=== PATIENT | male | born 1945 | race Caucasian/White ===

== ENCOUNTER → 2017-08-02 | Outpatient (CLI) | payer MEDICARE ==
[~2017-08-02] MED LIST: AMLODIPINE BESYL5 MG PO; GLIMEPIRIDE4 MG PO; HYDROCO/APAP PO; IOPAMIDOL 370 MG/ML 200 ML INFUS..BTL INJ ONE; JANUMET XR 50-1 EAC1 PO; KEFLEX500 MG PO; ORPHENADRINE C100 MG PO; PANTOPRAZOLE SO40 MG PO; RAMIPRIL10 MG PO; SIMVASTATIN20 MG PO; SODIUM CHLORIDE 0.9% 50ML 50 ML ONE; TYLENOL WITH C1 EACH PO
[2017-08-02 15:33] LABS: BLOOD UREA NITROGEN 6 mg/dL (7-26); BUN/CREATININE RATIO 8 (6-25); CREATININE, SERUM 0.78 mg/dL (0.72-1.25); EST GLOMERULAR FILTRATION RATE > 60 ML/MIN (60-)
--- NOTE | 2017-08-02 16:23 | Diagnostic Imaging Report ---
PROCEDURE: CT scan of the chest WITH intravenous contrast, using standard protocol. TECHNIQUE: The chest was scanned utilizing a multidetector helical scanner from the lung apex through the level of the adrenal glands after the IV administration of 100 cc of Isovue 370. Coronal and sagittal multiplanar reformations were obtained. COMPARISON: None available for comparison. INDICATIONS: LUNG NODULE, ABDOMINAL PAIN FINDINGS: Lines/tubes: None. Lungs and Airways: Mild bilateral paraseptal bullous emphysematous changes in the upper lobes. Metastatic disease. Mild to moderate subpleural reticulation involving predominantly the lower lobes (for example series 4, image 64), and right middle lobe (series 4, image 63) and lingula (series 4, image 72). Calcified granulomas in the right lower lobe, measuring 6 mm (series 4, images 66 and 71). No other nodular densities are identified. No consolidation. Airways are clear, without endobronchial lesions.. Pleura: No effusion, or pneumothorax. Heart and mediastinum: Thyroid is unremarkable. Heart size is normal. No pericardial effusion. Atherosclerotic calcification of the coronary arteries and thoracic aorta, predominantly at the the arch. Aorta is non-aneurysmal. The main pulmonary artery is mildly enlarged, measuring 3.3 cm. Lymph nodes: No mediastinal, hilar, or axillary adenopathy. Abdomen: Please see CT abdomen and pelvis performed same date for further detail. Bones: No aggressive lytic lesion. Soft tissues are grossly unremarkable. IMPRESSION: 1. 2 calcified granulomas in the right lower lobe. No other nodular densities are identified. Prior films would be helpful for comparison, at which time an addendum to this report can be made. 2. Findings in bilateral lower lobes, right, middle lobe and lingula, consistent with fibrotic changes. 3. Mild enlargement of the main pulmonary artery, suggesting pulmonary hypertension. Bal Herrera M.D. Dictated by: Bal Herrera M.D. on 08/02/2017 at 16:24 Electronically approved by: Bal Herrera M.D. on 08/02/2017 at 16:24
--- NOTE | 2017-08-02 18:45 | Diagnostic Imaging Report ---
PROCEDURE: CT ABDOMEN AND PELVIS WITH CONTRAST TECHNIQUE: The abdomen and pelvis were scanned utilizing a multidetector helical scanner from the diaphragm to the lesser trochanter after the IV administration of 100 cc of Isovue 370 and the oral administration of water. Coronal and sagittal multiplanar reformations were obtained. COMPARISON: None. INDICATIONS: LUNG NODULE, ABDOMINAL PAIN FINDINGS: LOWER THORAX: Please see chest CT performed same date for further detail. HEPATOBILIARY: 1.6 x 1.5 x 1.1 cm fluid density simple cyst in hepatic segment II (series 2 image 51). Scattered punctate calcifications in both hepatic lobes, consistent with calcified granuloma. No other focal lesions. No intrahepatic biliary ductal dilation. Borderline to minimal dilation of the common bile duct, which measures 7 mm at the ryan hepatis. No radiopaque intraluminal filling defects. Gallbladder is unremarkable. SPLEEN: No splenomegaly. Innumerable calcified granulomata PANCREAS: No focal masses or ductal dilatation. Moderate pancreatic atrophy. ADRENALS: No adrenal nodules. Thickening of the left adrenal gland, without focal lesions. KIDNEYS/URETERS: No hydronephrosis, renal or ureteral stones, or solid mass lesions. 6.4 x 7.3 x 6.9 cm mostly exophytic fluid density simple cyst arising from the lateral interpolar region of the right kidney (series 2 image 71). 5.6 x 4.5 x 4.0 cm fluid density simple cyst in the interpolar region of the right kidney (series 2, image 69). 1.7 x 1.9 x 2.4 cm fluid density simple cyst in the medial interpolar right kidney (series 2, image 70). 2.0 x 1.8 x 1.8 cm fluid density simple cyst in the inferior pole of the right kidney (series 2, image 77). 1.2 x 1.3 x 1.6 cm partly exophytic fluid density simple cyst in the posterior interpolar region of the right kidney (series 2, image 70). 8 mm low density simple cyst in the superior pole of the left kidney (series 2, image 56). PELVIC ORGANS/BLADDER: Bladder is moderately distended, without focal lesions or wall thickening.. PERITONEUM / RETROPERITONEUM: No free air or fluid. LYMPH NODES: No lymphadenopathy. VESSELS: Atherosclerotic calcification of the abdominal aorta and iliac vessels. GI TRACT: No bowel dilation or evidence of obstruction. Appendix is well identified and normal in caliber. No pericolonic inflammatory changes. BONES AND SOFT TISSUES: No aggressively lesions. Marked multilevel degenerative disc changes, predominantly at L1-L2, L2-L3, L3-L4, and L4-L5, with associated leftward curvature. Marked facet hypertrophy. L3-L4, L4-L5, and L5-S1. IMPRESSION: 1. No acute abdominopelvic abnormalities. 2. Multiple right simple renal cysts, the largest of which is mostly exophytic and measures 7.3 cm in diameter. A single subcentimeter simple left renal cyst is noted. 3. Prior granulomatous disease, manifested by hepatic and splenic granulomata. Bal Herrera M.D. Dictated by: Bal Herrera M.D. on 08/02/2017 at 18:45 Electronically approved by: Bal Herrera M.D. on 08/02/2017 at 18:45
== END ==
LOC: CT 14:44
PROVIDERS: ATTEND Family Medicine
DX: R91.1 Solitary pulmonary nodule (principal)
CPT/HCPCS: 36415; 71260; 74177; 82565; 84520; Q9967

== ENCOUNTER → 2018-06-17 | Outpatient (CLI) | payer MEDICARE ==
[~2018-06-17] MED LIST changes: -IOPAMIDOL 370 MG/ML 200 ML INFUS..BTL INJ ONE; -SODIUM CHLORIDE 0.9% 50ML 50 ML ONE
--- NOTE | 2018-06-17 16:44 | Diagnostic Imaging Report ---
Exam: Lumbar spine, 4 views History: Low back pain Comparison: None. Findings: There are 5 nonrib-bearing lumbar-type vertebral bodies with a transitional lumbosacral vertebra which will be referred to as S1. No acute, displaced fracture or dislocation. No pars interarticularis defects are identified on the oblique radiographs. Moderate levoscoliosis centered at L2-L3. There is advanced disc space loss, endplate sclerosis, and large marginal osteophytes extending from L2-L3 to L5-S1. Probable postlaminectomy changes at L4 and L5. Spinal stimulator device is noted. Sacroiliac joints are intact. Atherosclerotic vascular disease. Impression: No acute osseous abnormality. 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 Signed by: Dr. Loki Lloyd M.D. on 06/17/2018 4:40 PM
== END ==
LOC: RAD 15:56
PROVIDERS: ATTEND Anesthesiology Pain Medicine
DX: M47.26 Other spondylosis with radiculopathy, lumbar region (principal)
CPT/HCPCS: 72110

== ENCOUNTER → 2018-12-06 | Outpatient (CLI) | payer MEDICARE ==
[~2018-12-06] MED LIST changes: +LORAZEPAM INJ 2 MG/ML VIAL ONE
[2018-12-06 08:21] LABS: BLOOD UREA NITROGEN 8 mg/dL (7-26); BUN/CREATININE RATIO 10 (6-25); CREATININE, SERUM 0.84 mg/dL (0.72-1.25); EST GLOMERULAR FILTRATION RATE > 60 ML/MIN (60-)
--- NOTE | 2018-12-06 11:49 | Diagnostic Imaging Report ---
EXAMINATION: MRI of the brain without contrast. HISTORY: Chronic left eye pain, disorders of the optic nerves COMPARISON: None. TECHNIQUE: Sagittal T2; axial DWI, T2, FLAIR, T1-IR, T2 gradient echo; coronal FLAIR. IMAGE QUALITY: Adequate. FINDINGS: Parenchyma: 1. Few scattered mildly confluent periventricular white matter T2 hyperintense foci, most likely nonspecific chronic microvascular ischemic changes 2. No mass, hemorrhage, acute or chronic infarcts. Skull: Unremarkable. Vessels: Expected flow voids present in the major arteries and dural sinuses. Extra-axial spaces: No abnormal signal intensity or mass effect. Brain volume: Within normal limits for age. Ventricles: No hydrocephalus or displacement. Foramen magnum: Unremarkable. Sella: Unremarkable. Paranasal / mastoid sinuses: No significant inflammatory disease. IMPRESSION: Minimal age-related white matter chronic microvascular ischemic changes. Otherwise no intracranial abnormalities to explain the patient's symptoms. Signed by: Dr. Bushra De M.D. on 12/06/2018 11:46 AM
== END ==
LOC: MRI 07:06
PROVIDERS: ATTEND Ophthalmology
DX: H47.092 Other disorders of optic nerve, not elsewhere classified, left eye (principal)
CPT/HCPCS: 36415; 70551; 82565; 84520; J2060

== ENCOUNTER → 2018-12-10 | Outpatient (CLI) | payer MEDICARE ==
--- NOTE | 2018-12-10 15:08 | Diagnostic Imaging Report ---
MRI ORBIT WO HISTORY: Left eye pain COMPARISON: MRI of the brain 12/06/2018 Technique: Multiplanar, multisequence MRI examination of the orbits was performed without intravenous contrast. Motion artifacts obscure some details. DISCUSSION: The orbital reed are grossly intact. The ocular globes and extraocular muscles are normal in morphology. The optic nerves, chiasm, and tracts are normal in morphology. The intraconal and extraconal spaces, including the lacrimal glands, are unremarkable. The cavernous sinuses are grossly normal in size and symmetric. Meckel's caves are clear. The cavernous carotid flow voids are preserved. Additional findings: Mild generalized cerebral volume loss is partially visualized. Scattered T2 hyperintense foci throughout the supratentorial white matter are likely chronic microvascular ischemic changes. There is a small retention cyst in the right maxillary sinus. IMPRESSION: Unremarkable MRI of the orbits. Signed by: Dr. Joni Ge M.D. on 12/10/2018 3:05 PM
== END ==
LOC: MRI 11:12
PROVIDERS: ATTEND Ophthalmology
DX: H47.092 Other disorders of optic nerve, not elsewhere classified, left eye (principal)
CPT/HCPCS: 70540; J2060

== ENCOUNTER → 2019-04-30 | Outpatient (CLI) | payer MEDICARE ==
--- NOTE | 2019-04-30 10:06 | Diagnostic Imaging Report ---
MRI of the right hip without contrast. History: Hip pain. Decreased range of motion. Pain not responding to conservative management. Fall. Technique: Multiplanar multisequence MRI of the hip without contrast Findings: No acute fracture, subluxation or avascular necrosis. Scattered degenerative change about the visualized lower lumbar spine and pelvis. Prominent heterogeneous prostate gland. The inferior aspect of the urinary bladder protrudes inferiorly. Mild degenerative arthrosis in the right hip with thinning of the articular cartilage at the superior lateral acetabulum and adjacent femoral head. No underlying bone marrow edema. Degeneration and fraying of the labrum. Small osteophyte at the superior lateral femoral head/neck junction area physiologic amount of fluid in the hip joint. The remainder of the visualized ligaments and tendons about the hip are intact. Mild soft tissue edema adjacent to the right hip greater trochanter could be due to mild trochanteric bursitis. Mild insertional hamstring tendinosis. The remainder the visualized muscles are normal in size, signal intensity and morphology. No ligamentous or tendon tear. The visualized neurovascular bundles are intact. Impression: Mild degenerative arthrosis in the right hip joint. Mild soft tissue edema adjacent to the right hip greater trochanter could be due to mild trochanteric bursitis. Mild insertional hamstring tendinosis. Signed by: Dr. Adair Perez M.D. on 04/30/2019 10:03 AM
== END ==
LOC: MRI 07:00
PROVIDERS: ATTEND Physical Medicine & Rehabilitation Pain Medicine
DX: M25.551 Pain in right hip (principal)
CPT/HCPCS: 73721; J2060

== ENCOUNTER → 2020-03-31 | Outpatient (CLI) | payer MEDICARE ==
[~2020-03-31] MED LIST changes: -LORAZEPAM INJ 2 MG/ML VIAL ONE
--- NOTE | 2020-03-31 16:03 | Diagnostic Imaging Report ---
Exam: Testicular ultrasound. Clinical History: Enlarged testicle Findings: Sonographic evaluation of the testicles. Both testes are normal in echogenicity and size without intratesticular mass. Normal symmetric bilateral blood flow without evidence of testicular torsion. Right testicle: The right testicle measures 2.9 x 1.9 x 2.5 cm and appears unremarkable. The right epididymis measures 1.5 x 1.0 x 1.0 cm and contains a 7 mm spermatocele. Trace right hydrocele. No varicocele. The left testicle measures 2.9 x 1.4 x 2.7 cm and appears unremarkable. The left epididymis measures 1.1 x 0.9 x 0.9 cm and appears unremarkable. Trace left hydrocele. No varicocele. Impression: No testicular torsion or intratesticular mass. Trace bilateral hydroceles. Small right spermatocele. Signed by: Abdirashid Cifuentes MD on 03/31/2020 3:59 PM
== END ==
LOC: US 13:23
PROVIDERS: ATTEND Family Medicine
DX: N50.89 Other specified disorders of the male genital organs (principal); N43.3 Hydrocele, unspecified; N43.40 Spermatocele of epididymis, unspecified
CPT/HCPCS: 76870; 93976

== ENCOUNTER → 2020-09-01 | Outpatient (CLI) | payer MEDICARE ==
[~2020-09-01] MED LIST changes: +DIATRIZOATE MEGL/DIATRIZOA SOD 30 ML BTL PO ONE; +IOPAMIDOL 370 MG/ML 200 ML INFUS..BTL INJ ONE; +SODIUM CHLORIDE 0.9% 50ML 50 ML ONE
[2020-09-01 15:22] LABS: BLOOD UREA NITROGEN 7 mg/dL (7-26); BUN/CREATININE RATIO 10 (6-25); CREATININE, SERUM 0.71 mg/dL (0.72-1.25); EST GLOMERULAR FILTRATION RATE > 60 ML/MIN (60-)
== END ==
LOC: CT 14:44
PROVIDERS: ATTEND Family Medicine
DX: R10.84 Generalized abdominal pain (principal); R63.4 Abnormal weight loss; R11.2 Nausea with vomiting, unspecified; Z87.891 Personal history of nicotine dependence
CPT/HCPCS: 36415; 71046; 74177; 82565; 84520; Q9967

== ENCOUNTER → 2020-09-23 | Outpatient (CLI) | payer MEDICARE ==
[~2020-09-23] MED LIST changes: -DIATRIZOATE MEGL/DIATRIZOA SOD 30 ML BTL PO ONE
[2020-09-23 13:23] LABS: BLOOD UREA NITROGEN 6 mg/dL (7-26); BUN/CREATININE RATIO 8 (6-25); CREATININE, SERUM 0.71 mg/dL (0.72-1.25); EST GLOMERULAR FILTRATION RATE > 60 ML/MIN (60-)
== END ==
LOC: CT 12:28
PROVIDERS: ATTEND Student in an Organized Health Care Education/Training Program
DX: R64 Cachexia (principal)
CPT/HCPCS: 36415; 71260; 82565; 84520; Q9967

== ENCOUNTER → 2020-09-28 | Outpatient (CLI) | payer MEDICARE ==
[~2020-09-28] MED LIST changes: +GADOBENATE DIMEGLUMINE 1 ML IV ONE; -IOPAMIDOL 370 MG/ML 200 ML INFUS..BTL INJ ONE; +LORAZEPAM INJ 2 MG/ML VIAL ONE
[2020-09-28 08:41] LABS: BLOOD UREA NITROGEN 5 mg/dL (7-26); BUN/CREATININE RATIO 7 (6-25); EST GLOMERULAR FILTRATION RATE > 60 ML/MIN (60-)
== END ==
LOC: MRI 07:48
PROVIDERS: ATTEND Surgery
DX: R10.9 Unspecified abdominal pain (principal); R63.4 Abnormal weight loss; K83.8 Other specified diseases of biliary tract
CPT/HCPCS: 36415; 74183; 82565; 84520; J2060

== ENCOUNTER → 2020-10-20 | Day surgery (SDC) | payer MEDICARE ==
[2020-10-15 09:21] LABS: BASOPHILS % 0.7 % (0.0-1.0); EOSINOPHILS # (AUTO) 0.2 (0.0-0.4); EOSINOPHILS % 2.6 % (0.0-6.0); HEMATOCRIT 34.1 % (38.2-49.6); HEMOGLOBIN 10.6 g/dL (14.0-18.0); LYMPHOCYTES # (AUTO) 1.6 (1.0-3.2); LYMPHOCYTES % 25.8 % (18.0-39.1); MEAN CORPUSCULAR HEMOGLOBIN 25.3 pg (28-32); MEAN CORPUSCULAR HGB CONC 31.1 g/dL (31-35); MEAN CORPUSCULAR VOLUME 81.4 fL (81-99); MONOCYTES # (AUTO) 0.6 (0.2-0.8); MONOCYTES % 9.9 % (4.4-11.3); NEUTROPHILS # (AUTO) 3.7 (2.1-6.9); NEUTROPHILS % 60.7 % (38.7-80.0); PLATELET COUNT 344 x10e3/uL (140-360); RED BLOOD COUNT 4.19 x10e6/uL (4.3-5.7); RED CELL DISTRIBUTION WIDTH 18.2 % (11.7-14.4)
[~2020-10-20] MED LIST changes: +ALFUZOSIN HCL10 MG PO; +BACLOFEN20 MG PO; +CLARITIN10 MG PO; -GADOBENATE DIMEGLUMINE 1 ML IV ONE; +HYDROCODON-ACE1 EAC9 PO; -LORAZEPAM INJ 2 MG/ML VIAL ONE; +LOSARTAN POTAS100 MG PO; +OMEPRAZOLE40 MG PO; +PANTOPRAZOLE 40 MG 10ML VIAL ONE; +PROPOFOL IV EMULSION 10 MG/ML 20 ML VIAL ONE; -SODIUM CHLORIDE 0.9% 50ML 50 ML ONE; +TOUJEO SOL300 UNIT/1 SQ
[2020-10-20 11:45] VITALS: BP 138/69
[2020-10-20 12:28] LABS: % IRON SATURATION 19 % (15-50); IRON 49 ug/dL (65-175); TOTAL IRON BINDING CAPACITY 253 ug/dL (261-478); TRANSFERRIN 181 mg/dL (174-364)
== END | disposition home or self-care (01) ==
LOC: OR 07:15
PROVIDERS: ATTEND Internal Medicine Gastroenterology
DX: K22.2 Esophageal obstruction (principal); D12.2 Benign neoplasm of ascending colon; D12.4 Benign neoplasm of descending colon; D12.5 Benign neoplasm of sigmoid colon; D12.8 Benign neoplasm of rectum; K29.70 Gastritis, unspecified, without bleeding; K20.90 Esophagitis, unspecified without bleeding; K44.9 Diaphragmatic hernia without obstruction or gangrene; K59.00 Constipation, unspecified; K64.8 Other hemorrhoids; D64.89 Other specified anemias; R63.4 Abnormal weight loss; I10 Essential (primary) hypertension; E11.9 Type 2 diabetes mellitus without complications; E78.5 Hyperlipidemia, unspecified; F41.9 Anxiety disorder, unspecified; Z88.6 Allergy status to analgesic agent; Z01.810 Encounter for preprocedural cardiovascular examination; Z01.812 Encounter for preprocedural laboratory examination; Z20.822 Contact with and (suspected) exposure to COVID-19; Z87.891 Personal history of nicotine dependence; Z87.19 Personal history of other diseases of the digestive system
CPT/HCPCS: 36415 ×2; 43239; 43450; 45380; 45385; 82607; 82746; 82948; 83540; 84466; 85025; 85045; 93005; C9113; J2704; U0002; 45378; 45384

== ENCOUNTER → 2020-11-24 | Outpatient (CLI) | payer MEDICARE ==
[~2020-11-24] MED LIST changes: -PANTOPRAZOLE 40 MG 10ML VIAL ONE; -PROPOFOL IV EMULSION 10 MG/ML 20 ML VIAL ONE
== END ==
LOC: NM 07:52
PROVIDERS: ATTEND Internal Medicine Gastroenterology
DX: R10.84 Generalized abdominal pain (principal); R63.4 Abnormal weight loss; K82.9 Disease of gallbladder, unspecified
CPT/HCPCS: 78226; A9537

== ENCOUNTER → 2020-12-13 | Day surgery (SDC) | payer MEDICARE ==
[2020-12-09 13:02] LABS: BASOPHILS # (AUTO) 0.1 (0.0-0.1); BASOPHILS % 1.1 % (0.0-1.0); EOSINOPHILS # (AUTO) 0.2 (0.0-0.4); EOSINOPHILS % 4.3 % (0.0-6.0); HEMATOCRIT 35.7 % (38.2-49.6); HEMOGLOBIN 11.3 g/dL (14.0-18.0); LYMPHOCYTES # (AUTO) 1.5 (1.0-3.2); LYMPHOCYTES % 26.2 % (18.0-39.1); MEAN CORPUSCULAR HEMOGLOBIN 26.8 pg (28-32); MEAN CORPUSCULAR HGB CONC 31.7 g/dL (31-35); MEAN CORPUSCULAR VOLUME 84.8 fL (81-99); MONOCYTES # (AUTO) 0.5 (0.2-0.8); MONOCYTES % 8.9 % (4.4-11.3); NEUTROPHILS # (AUTO) 3.3 (2.1-6.9); NEUTROPHILS % 59.1 % (38.7-80.0); PLATELET COUNT 294 x10e3/uL (140-360); RED BLOOD COUNT 4.21 x10e6/uL (4.3-5.7); RED CELL DISTRIBUTION WIDTH 16.1 % (11.7-14.4)
[2020-12-09 13:24] LABS: ALBUMIN 3.9 g/dL (3.5-5.0); ALBUMIN/GLOBULIN RATIO 1.3 (0.8-2.0); ANION GAP 11.6 mmol/L (8-16); CREATININE, SERUM 0.79 mg/dL (0.72-1.25); POTASSIUM 4.6 mmol/L (3.5-5.1)
[~2020-12-13] MED LIST changes: +BUPIVACAINE HCL 0.5% INJ 30 ML VIAL INJ ONE; +ESMOLOL HCL 100MG/10ML 10 MG/ML VIAL ONE; +FENTANYL CITRATE/PF 100MCG/2 ML INJ ONE; +GLYCOPYRROLATE INJ 0.2 MG/ML VIAL ONE; +HYDROCODONE/APAP 7.5MG-325MG 1 EA TAB ONE; +HYDROMORPHONE 1MG/1ML INJ ONE; +IOPAMIDOL 300MG/ML 50ML INFUS..BTL IV ONE; +LIDOCAINE HCL 2% LOCAL INJ 5 ML SDV VIAL INJ ONE; +METOPROLOL TARTRATE INJ 1 MG/ML VIAL ONE; +MORPHINE SULFATE INJ 4 MG/ML INJ 1ML ONE; +NEOSTIGMINE 1 MG/ML 10ML VIAL ONE; +POVIDONE IODINE 0.05% 0.05 % ML PO ONE; +PROPOFOL IV EMULSION 10 MG/ML 20 ML VIAL ONE; +SEVOFLURANE INHAL SOLN 250 ML PEN BTL ONE
[2020-12-13 12:48] VITALS: BP 123/62
== END | disposition home or self-care (01) ==
LOC: OR 06:38
PROVIDERS: ATTEND Surgery
DX: K81.1 Chronic cholecystitis (principal); R19.00 Intra-abdominal and pelvic swelling, mass and lump, unspecified site; B49 Unspecified mycosis; M54.9 Dorsalgia, unspecified; I10 Essential (primary) hypertension; E78.5 Hyperlipidemia, unspecified; E11.9 Type 2 diabetes mellitus without complications; Z01.810 Encounter for preprocedural cardiovascular examination; Z01.812 Encounter for preprocedural laboratory examination; Z01.818 Encounter for other preprocedural examination; Z79.4 Long term (current) use of insulin; Z87.891 Personal history of nicotine dependence
CPT/HCPCS: 36415 ×2; 47564; 71046; 74300; 80053; 82948; 85025; 88304; 88312; 93005; C1766; J1170; J2001; J2270; J2704; J2710; J3010; Q9967

== ENCOUNTER → 2021-03-11 | Outpatient (CLI) | payer MEDICARE ==
[~2021-03-11] MED LIST changes: -BUPIVACAINE HCL 0.5% INJ 30 ML VIAL INJ ONE; -ESMOLOL HCL 100MG/10ML 10 MG/ML VIAL ONE; -FENTANYL CITRATE/PF 100MCG/2 ML INJ ONE; -GLYCOPYRROLATE INJ 0.2 MG/ML VIAL ONE; -HYDROCODONE/APAP 7.5MG-325MG 1 EA TAB ONE; -HYDROMORPHONE 1MG/1ML INJ ONE; -IOPAMIDOL 300MG/ML 50ML INFUS..BTL IV ONE; -LIDOCAINE HCL 2% LOCAL INJ 5 ML SDV VIAL INJ ONE; -METOPROLOL TARTRATE INJ 1 MG/ML VIAL ONE; -MORPHINE SULFATE INJ 4 MG/ML INJ 1ML ONE; -NEOSTIGMINE 1 MG/ML 10ML VIAL ONE; -POVIDONE IODINE 0.05% 0.05 % ML PO ONE; -PROPOFOL IV EMULSION 10 MG/ML 20 ML VIAL ONE; -SEVOFLURANE INHAL SOLN 250 ML PEN BTL ONE
== END ==
LOC: DX 09:26
PROVIDERS: ATTEND Internal Medicine Gastroenterology
DX: R13.14 Dysphagia, pharyngoesophageal phase (principal); K29.70 Gastritis, unspecified, without bleeding; Z20.822 Contact with and (suspected) exposure to COVID-19
CPT/HCPCS: 74230; 92526; 92611; U0002

== ENCOUNTER 2021-03-24 05:28 | Observation (INO) | payer MEDICARE ==
[2021-03-21 11:00] LABS: BASOPHILS % 0.4 % (0.0-1.0); EOSINOPHILS # (AUTO) 0.2 (0.0-0.4); EOSINOPHILS % 1.5 % (0.0-6.0); HEMATOCRIT 34.2 % (38.2-49.6); HEMOGLOBIN 10.8 g/dL (14.0-18.0); LYMPHOCYTES # (AUTO) 2.2 (1.0-3.2); LYMPHOCYTES % 20.4 % (18.0-39.1); MEAN CORPUSCULAR HEMOGLOBIN 28.2 pg (28-32); MEAN CORPUSCULAR HGB CONC 31.6 g/dL (31-35); MEAN CORPUSCULAR VOLUME 89.3 fL (81-99); MONOCYTES % 8.7 % (4.4-11.3); NEUTROPHILS # (AUTO) 7.5 (2.1-6.9); NEUTROPHILS % 68.1 % (38.7-80.0); PLATELET COUNT 405 x10e3/uL (140-360); RED BLOOD COUNT 3.83 x10e6/uL (4.3-5.7); RED CELL DISTRIBUTION WIDTH 14.6 % (11.7-14.4)
[2021-03-21 11:26] LABS: ANION GAP 12.5 mmol/L (8-16); CALCIUM 8.7 mg/dL (8.4-10.2); CREATININE, SERUM 0.77 mg/dL (0.72-1.25); POTASSIUM 4.5 mmol/L (3.5-5.1)
[~2021-03-24] VITALS: Ht 180.3 cm; Wt 64.4 kg
[~2021-03-24 05:28] MED LIST changes: +AMITRIPTYLINE H25 MG PO; +MUCINEX DM ER1 EACH PO
[2021-03-24] MEDS ORDERED: CEFTRIAXONE 1 GM VIAL ONE (06:01)
[2021-03-24] MEDS ORDERED: SODIUM CHLORIDE 0.9% 50ML 50 ML ONE (06:02)
[2021-03-24] MEDS ORDERED: SODIUM PO (06:25)
[2021-03-24] MEDS ORDERED: IOPAMIDOL 300MG/ML 50ML INFUS..BTL IV ONE (06:46)
[2021-03-24] MEDS ORDERED: FENTANYL CITRATE/PF 100MCG/2 ML INJ ONE (07:54)
[2021-03-24] MEDS ORDERED: Morphine 2mg Syringe 2 MG/ML SYR ONE ×2 (08:06→08:17)
[2021-03-24 08:29] LABS: ANION GAP 14.3 mmol/L (8-16); CALCIUM 8.4 mg/dL (8.4-10.2); CREATININE, SERUM 0.68 mg/dL (0.72-1.25); POTASSIUM 4.3 mmol/L (3.5-5.1)
[2021-03-24 08:52] VITALS: BP 151/69
[2021-03-24] MEDS ORDERED: INSULIN GLARGINE 100 UNITS/ML VIAL SQ SCH ×2 (09:00→21:00)
[2021-03-24] MEDS: LOSARTAN POTASSIUM 100 MG TAB PO SCH (09:00)
[2021-03-24] MEDS: AMLODIPINE BESYLATE 5 MG TAB PO SCH (09:00)
[2021-03-24] MEDS: AMITRIPTYLINE HCL 25 MG TAB PO SCH ×2 (09:00→09:53)
[2021-03-24] MEDS: BACLOFEN 10 MG TAB PO SCH ×3 (09:00→20:50)
[2021-03-24 09:25] VITALS: BP 151/69
[2021-03-24] MEDS: LORATADINE 10 MG TAB PO SCH (09:52)
[2021-03-24] MEDS: GUAIFENESIN 600MG/DEXTROMETHORPHAN 30MG TABSR PO SCH ×2 (09:53→20:50)
[2021-03-24] MEDS: HYDROCODONE/APAP 10MG-325MG TAB PO PRN ×2 (09:53→18:35)
[2021-03-24] MEDS: PANTOPRAZOLE SOD 40 MG TABEC PO SCH (09:53)
[2021-03-24] MEDS ORDERED: SODIUM CHLORIDE 0.9% 1000ML 1,000 ML IV ONE (10:45)
[2021-03-24 12:06] VITALS: BP 130/74
[2021-03-24] MEDS: Morphine 4mg Syringe 4 MG/ML INJ IV PRN ×3 (13:33→21:37)
[2021-03-24 15:53] VITALS: BP 133/70
[2021-03-24] MEDS: SODIUM CHLORIDE 1 GM TAB PO SCH ×2 (16:10→20:50)
[2021-03-24 20:00] VITALS: BP 165/81
[2021-03-24 20:50] VITALS: BP 165/81
[2021-03-24] MEDS ORDERED: SIMVASTATIN 20 MG TAB PO SCH (21:00)
[2021-03-25] VITALS: BP 136/75
[2021-03-25 04:00] VITALS: BP 134/70
[2021-03-25 05:22] LABS: ANION GAP 15.6 mmol/L (8-16); CALCIUM 8.6 mg/dL (8.4-10.2); CREATININE, SERUM 0.7 mg/dL (0.72-1.25); POTASSIUM 4.6 mmol/L (3.5-5.1)
[2021-03-25] MEDS: Morphine 4mg Syringe 4 MG/ML INJ IV PRN (06:13)
[2021-03-25 08:18] VITALS: BP 138/76
[2021-03-25 08:21] VITALS: BP 138/76
[2021-03-25] MEDS: PANTOPRAZOLE SOD 40 MG TABEC PO SCH (08:30)
[2021-03-25] MEDS: BACLOFEN 10 MG TAB PO SCH (08:50)
[2021-03-25] MEDS: LOSARTAN POTASSIUM 100 MG TAB PO SCH (08:50)
[2021-03-25] MEDS: LORATADINE 10 MG TAB PO SCH (08:50)
[2021-03-25] MEDS: GUAIFENESIN 600MG/DEXTROMETHORPHAN 30MG TABSR PO SCH (08:50)
[2021-03-25] MEDS: AMLODIPINE BESYLATE 5 MG TAB PO SCH (08:50)
[2021-03-25] MEDS: SODIUM CHLORIDE 1 GM TAB PO SCH (08:51)
[2021-03-25 12:09] VITALS: BP 119/65
[2021-03-25] MEDS ORDERED: BACTRIM DS TAB1 EACH PO (15:31)
== END 2021-03-25 15:41 | disposition home or self-care (01) ==
LOC: OR 05:28 → PACU V 07:58 → MED/SURG 08:31
PROVIDERS: ADMIT Urology; ATTEND Urology
DX: N40.1 Benign prostatic hyperplasia with lower urinary tract symptoms (principal); N32.0 Bladder-neck obstruction; R35.0 Frequency of micturition; R35.1 Nocturia; R39.14 Feeling of incomplete bladder emptying; I10 Essential (primary) hypertension; E11.9 Type 2 diabetes mellitus without complications; K21.9 Gastro-esophageal reflux disease without esophagitis; E78.5 Hyperlipidemia, unspecified; Z01.810 Encounter for preprocedural cardiovascular examination; Z68.22 Body mass index [BMI] 22.0-22.9, adult; Z01.812 Encounter for preprocedural laboratory examination; Z01.818 Encounter for other preprocedural examination; Z20.822 Contact with and (suspected) exposure to COVID-19
CPT/HCPCS: 36415 ×3; 52630; 71046; 80048 ×3; 82948 ×2; 84295; 85025; 88305; 93005; C1758; G0378 ×2; J0696; J1815; J2270 ×3; J3010; J7030; S0164 ×2; U0002

== ENCOUNTER 2021-04-25 09:43 | Outpatient (RCR) | payer MEDICARE ==
[~2021-04-25 09:43] MED LIST changes: +BACTRIM DS TAB1 EACH PO; +SODIUM PO
== END 2021-04-26 ==
LOC: ST 09:43
PROVIDERS: ATTEND Internal Medicine Gastroenterology
DX: R13.13 Dysphagia, pharyngeal phase (principal)

== ENCOUNTER → 2021-05-09 | Outpatient (CLI) | payer MEDICARE ==
[~2021-05-09] MED LIST changes: +IOPAMIDOL 370 MG/ML 200 ML INFUS..BTL INJ ONE; +SODIUM CHLORIDE 0.9% 50ML 50 ML ONE
== END ==
LOC: CT 15:58
PROVIDERS: ATTEND Family Medicine
DX: R19.09 Other intra-abdominal and pelvic swelling, mass and lump (principal)
CPT/HCPCS: 74177; Q9967

== ENCOUNTER 2021-05-23 08:31 | Outpatient (RCR) | payer MEDICARE ==
[~2021-05-23 08:31] MED LIST changes: -IOPAMIDOL 370 MG/ML 200 ML INFUS..BTL INJ ONE; -SODIUM CHLORIDE 0.9% 50ML 50 ML ONE
== END 2021-05-27 ==
LOC: ST 08:31
PROVIDERS: ATTEND Internal Medicine Gastroenterology
DX: R13.13 Dysphagia, pharyngeal phase (principal); R09.89 Other specified symptoms and signs involving the circulatory and respiratory systems

== ENCOUNTER → 2021-06-24 | Day surgery (SDC) | payer MEDICARE ==
[2021-06-10 09:04] LABS: BASOPHILS # (AUTO) 0.1 (0.0-0.1); BASOPHILS % 0.7 % (0.0-1.0); EOSINOPHILS # (AUTO) 0.1 (0.0-0.4); EOSINOPHILS % 1.5 % (0.0-6.0); HEMOGLOBIN 10.8 g/dL (14.0-18.0); LYMPHOCYTES # (AUTO) 2.3 (1.0-3.2); LYMPHOCYTES % 33.9 % (18.0-39.1); MEAN CORPUSCULAR HEMOGLOBIN 26.8 pg (28-32); MEAN CORPUSCULAR HGB CONC 30.9 g/dL (31-35); MEAN CORPUSCULAR VOLUME 86.8 fL (81-99); MONOCYTES % 14.3 % (4.4-11.3); NEUTROPHILS # (AUTO) 3.3 (2.1-6.9); NEUTROPHILS % 49.3 % (38.7-80.0); PLATELET COUNT 334 x10e3/uL (140-360); RED BLOOD COUNT 4.03 x10e6/uL (4.3-5.7); RED CELL DISTRIBUTION WIDTH 12.5 % (11.7-14.4)
[2021-06-10 09:52] LABS: ANION GAP 15.3 mmol/L (8-16); CALCIUM 9.7 mg/dL (8.4-10.2); CREATININE, SERUM 0.89 mg/dL (0.72-1.25); POTASSIUM 4.3 mmol/L (3.5-5.1)
[~2021-06-24] MED LIST changes: +BUPIVACAINE 0.25% 30ML SDV ONE; +FENTANYL CITRATE/PF 100MCG/2 ML INJ ONE; +KETOROLAC TROMETHAMINE 30 MG/ML VIAL ONE; +LIDOCAINE 2%/ EPINEPHRINE 20ML MDV ONE; +LIDOCAINE HCL 1% LOCAL INJ 20 ML VIAL ONE; +LIDOCAINE HCL 2% LOCAL INJ 5 ML SDV VIAL INJ ONE; +Morphine 10mg syringe 10 MG/ML INJ ONE; +ONDANSETRON HCL INJ 2MG/ML 2ML 2 MG/ML VIAL ONE; +POVIDONE IODINE 0.05% 0.05 % ML PO ONE; +PROPOFOL IV EMULSION 10 MG/ML 20 ML VIAL ONE; +SEVOFLURANE INHAL SOLN 250 ML PEN BTL ONE
[2021-06-24 13:15] VITALS: BP 130/76
== END | disposition home or self-care (01) ==
LOC: OR 07:14
PROVIDERS: ATTEND Surgery
DX: K40.90 Unilateral inguinal hernia, without obstruction or gangrene, not specified as recurrent (principal); D17.6 Benign lipomatous neoplasm of spermatic cord; I49.3 Ventricular premature depolarization; G50.0 Trigeminal neuralgia; J30.2 Other seasonal allergic rhinitis; I10 Essential (primary) hypertension; E11.9 Type 2 diabetes mellitus without complications; K21.9 Gastro-esophageal reflux disease without esophagitis; Z01.812 Encounter for preprocedural laboratory examination; Z20.822 Contact with and (suspected) exposure to COVID-19; Z79.4 Long term (current) use of insulin; Z79.899 Other long term (current) drug therapy
CPT/HCPCS: 36415 ×2; 49525; 80048; 82948; 85025; C1781; J1885; J2001 ×2; J2270; J2405; J2704; J3010; U0002

== ENCOUNTER → 2021-09-26 | Outpatient (CLI) | payer MEDICARE ==
[~2021-09-26] MED LIST changes: -BUPIVACAINE 0.25% 30ML SDV ONE; -FENTANYL CITRATE/PF 100MCG/2 ML INJ ONE; -KETOROLAC TROMETHAMINE 30 MG/ML VIAL ONE; -LIDOCAINE 2%/ EPINEPHRINE 20ML MDV ONE; -LIDOCAINE HCL 1% LOCAL INJ 20 ML VIAL ONE; -LIDOCAINE HCL 2% LOCAL INJ 5 ML SDV VIAL INJ ONE; -Morphine 10mg syringe 10 MG/ML INJ ONE; -ONDANSETRON HCL INJ 2MG/ML 2ML 2 MG/ML VIAL ONE; -POVIDONE IODINE 0.05% 0.05 % ML PO ONE; -PROPOFOL IV EMULSION 10 MG/ML 20 ML VIAL ONE; -SEVOFLURANE INHAL SOLN 250 ML PEN BTL ONE
== END ==
LOC: MRI 07:27
PROVIDERS: ATTEND Family Medicine
DX: M16.11 Unilateral primary osteoarthritis, right hip (principal)

== ENCOUNTER → 2021-10-13 | Outpatient (CLI) | payer MEDICARE | LOC: MRI 09:23 | PROVIDERS: ATTEND Orthopaedic Surgery | DX: M54.16 Radiculopathy, lumbar region (principal) | CPT/HCPCS: 72148 ==

== ENCOUNTER → 2022-01-16 | Day surgery (SDC) | payer MEDICARE ==
[2022-01-13 09:54] LABS: BASOPHILS # (AUTO) 0.1 (0.0-0.1); BASOPHILS % 0.5 % (0.0-1.0); EOSINOPHILS # (AUTO) 0.4 (0.0-0.4); EOSINOPHILS % 4.3 % (0.0-6.0); HEMATOCRIT 33.8 % (38.2-49.6); HEMOGLOBIN 10.6 g/dL (14.0-18.0); LYMPHOCYTES # (AUTO) 1.8 (1.0-3.2); LYMPHOCYTES % 18.1 % (18.0-39.1); MEAN CORPUSCULAR HEMOGLOBIN 25.5 pg (28-32); MEAN CORPUSCULAR HGB CONC 31.4 g/dL (31-35); MEAN CORPUSCULAR VOLUME 81.3 fL (81-99); MONOCYTES # (AUTO) 0.9 (0.2-0.8); MONOCYTES % 9.4 % (4.4-11.3); NEUTROPHILS # (AUTO) 6.5 (2.1-6.9); NEUTROPHILS % 67.2 % (38.7-80.0); PLATELET COUNT 406 x10e3/uL (140-360); RED BLOOD COUNT 4.16 x10e6/uL (4.3-5.7); RED CELL DISTRIBUTION WIDTH 16.7 % (11.7-14.4)
[~2022-01-16] MED LIST changes: +FENTANYL CITRATE/PF 100MCG/2 ML INJ ONE; +GLUCAGON FOR INJ 1 MG VIAL ONE; +MIDAZOLAM HCL 2 MG/2 ML VIAL ONE; +PROPOFOL IV EMULSION 10 MG/ML 20 ML VIAL ONE
[2022-01-16 09:31] VITALS: BP 122/75
== END | disposition home or self-care (01) ==
LOC: OR 07:01
PROVIDERS: ATTEND Internal Medicine Gastroenterology
DX: K29.70 Gastritis, unspecified, without bleeding (principal); D12.4 Benign neoplasm of descending colon; Z86.010 Personal history of colon polyps; E11.9 Type 2 diabetes mellitus without complications; D64.89 Other specified anemias; R13.14 Dysphagia, pharyngoesophageal phase; R63.4 Abnormal weight loss; K59.09 Other constipation; K22.2 Esophageal obstruction; K31.7 Polyp of stomach and duodenum; K62.1 Rectal polyp; K64.8 Other hemorrhoids; Z68.20 Body mass index [BMI] 20.0-20.9, adult; Z01.810 Encounter for preprocedural cardiovascular examination; Z01.812 Encounter for preprocedural laboratory examination; Z20.822 Contact with and (suspected) exposure to COVID-19
CPT/HCPCS: 0223U; 36415 ×2; 43239; 43450; 45385; 82948; 85025; 93005; C9113; J1610; J2250; J2704; J3010; 45378; 45380

== ENCOUNTER → 2022-10-25 | Outpatient (CLI) | payer MEDICARE ==
[~2022-10-25] MED LIST changes: -FENTANYL CITRATE/PF 100MCG/2 ML INJ ONE; -GLUCAGON FOR INJ 1 MG VIAL ONE; -MIDAZOLAM HCL 2 MG/2 ML VIAL ONE; -PROPOFOL IV EMULSION 10 MG/ML 20 ML VIAL ONE
== END ==
LOC: CT 11:10
PROVIDERS: ATTEND Family Medicine
DX: R91.1 Solitary pulmonary nodule (principal)
CPT/HCPCS: 71250